=== PATIENT | female | born 1970 | race Caucasian/White ===

== ENCOUNTER 2018-09-05 01:03 | Emergency (ER) | payer OTHER ==
[2018-09-05 01:21] VITALS: BMI 26.4
[2018-09-05 01:25] VITALS: TEMP 98.2; O2SAT 98
[2018-09-05 02:02] LABS: BASO # 0.1 K/uL (0.0-0.2); BASO % 0.7 % (0.0-2.0); EOS # 0.4 K/uL (0.0-0.7); EOS % 5.3 % (0.0-4.0); HEMOGLOBIN 11.9 g/dL (12.0-16.0); LYMPH # 2.6 K/uL (1.0-4.3); LYMPH % 35.4 % (20.0-40.0); MEAN CELL VOLUME 91.1 fl (81.0-99.0); MEAN CORPUSCULAR HEMOGLOBIN 30.1 pg (27.0-31.0); MEAN CORPUSCULAR HGB CONC 33.1 g/dL (33.0-37.0); MONO # 0.6 K/uL (0.0-0.8); NEUT # 3.8 K/uL (1.8-7.0); NEUT % 50.6 % (50.0-75.0); RBC 3.94 Mil/uL (3.80-5.20); RED CELL DISTRIBUTION WIDTH 13.3 % (11.5-14.5); WHITE BLOOD COUNT 7.5 K/uL (4.8-10.8)
[2018-09-05 02:07] LABS: INR 0.9; PROTHROMBIN TIME 10.4 Seconds (9.8-13.1)
[2018-09-05 02:10] LABS: PARTIAL THROMBOPLASTIN TIME 25.4 Seconds (25.6-37.1)
--- NOTE | 2018-09-05 02:10 | ED PDOC ---
HPI: General Adult Time Seen by Provider: 09/05/18 01:20 Chief Complaint (Nursing): Weakness/Neurological Deficit Chief Complaint (Provider): left calf pain History Per: Patient History/Exam Limitations: no limitations Onset/Duration Of Symptoms: Days (x2 weeks) Current Symptoms Are (Timing): Still Present Additional Complaint(s): Wendy Felix is a 48 year old female, with a past medical history of HTN, who presents to the emergency department complaining of left calf pain ongoing for x2 weeks. Patient states pain is exacerbated with walking and flexing of the fo ot. 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 Patient reports while driving [employer], her left side of her face went numb, she looked in the mirror and saw no facial droop. She denies any vision loss, weakness in the arms or left leg. No further medical complaints. On arrival to ED, patient was found to have a high blood pressure. PMD: Dr. Beard NIHSS Stroke Scale - Date/Time Evaluation Performed Date Performed: 09/05/18 Time Performed: 01:22 - How Severe is the Stroke Level of Consciousness: 0=Alert LOC to Questions: 0=Both comments correct LOC to commands: 0=Obeys both correctly Best Gaze: 0=Normal Visual: 0=No visual loss Facial: 0=Normal Motor Arm - Left: 0=No drift Motor Arm - Right: 0=No drift Motor Leg - Left: 0=No drift Motor Leg - Right: 0=No drift Limb Ataxia: 0=Absent Sensory: 0=Normal Best Language: 0=No aphasia Dysarthia: 0=Normal articulation Extinction & Inattention (Neglect): 0=Normal, no object Score: 0 Past Medical History Reviewed: Historical Data, Nursing Documentation, Vital Signs Vital Signs: Last Vital Signs Temp 98.2 F 09/05/18 01:20 Pulse 93 H 09/05/18 01:20 Resp 18 09/05/18 01:20 BP 179/98 H 09/05/18 01:20 Pulse Ox 98 09/05/18 01:20 Primary Care Provider: Non [facility] Provider, - Medical History PMH: HTN - Surgical History Surgical History: No Surg Hx - Family History Family History: States: Unknown Family Hx - Social History Current smoker - smoking cessation education provided: No Alcohol: None Drugs: Denies - Allergies Allergies/Adverse Reactions: Allergies Allergy/AdvReac Type Severity Reaction Status Date / Time No Known Allergies Allergy Verified 09/05/18 01:20 Review of Systems ROS Statement: Except As Marked, All Systems Reviewed And Found Negative Eyes: Negative for: Vision Change Musculoskeletal: Positive for: Leg Pain (left calf pain) Neurological: Positive for: Numbness (left side of face). Negative for: Weakness (left arm or leg), Other (facial droop) Physical Exam - Reviewed Nursing Documentation Reviewed: Yes Vital Signs Reviewed: Yes - Physical Exam Appears: Positive for: No Acute Distress Head Exam: Positive for: ATRAUMATIC, NORMAL INSPECTION, NORMOCEPHALIC Skin: Positive for: Normal Color, Warm, Dry Eye Exam: Positive for: Normal appearance, EOMI, PERRL ENT: Positive for: Normal ENT Inspection Neck: Positive for: Normal, Painless ROM, Supple Cardiovascular/Chest: Positive for: Regular Rate, Rhythm. Negative for: Murmur Respiratory: Positive for: Normal Breath Sounds. Negative for: Respiratory Distress Gastrointestinal/Abdominal: Positive for: Normal Exam, Soft. Negative for: Tenderness, Guarding, Rebound Back: Positive for: Normal Inspection. Negative for: L CVA Tenderness, R CVA Tenderness, Vertebral Tenderness Extremity: Positive for: Normal ROM (upper and lower extremities), Calf Tenderness (mild pain on left with calf squeeze, no visible swelling or ecchymosis). Negative for: Tenderness, Deformity, Swelling Neurological/Psych: Positive for: Awake, Alert, Normal Tone, Symmetric/Intact Strength, Oriented (x3), Cerebellar Tests (normal), water plant operator II-XII (intact). Negative for: Lethargic, Motor/Sensory Deficits, Facial Droop - Laboratory Results Result Diagrams: 09/05/18 01:50 09/05/18 01:50 - ECG O2 Sat by Pulse Oximetry: 98 (RA) Pulse Ox Interpretation: Normal Medical Decision Making Medical Decision Making: Time: 01:20 Initial Impression: Work up for left sided clot. 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 Also discussed the possibility of a CT scan for left sided pain. Patient agrees to hold off as she has no objective findings, weakness or slurred speech. Will oberve patient's blood pressure, if it doesn't go down and reassess. Initial Plan: --VBG --BMP --CBC w/ differential --D Dimer --PTT --PT --Chest two views (PA/LAT) [RAD] --Reevaluation 02:57 Labs and D Dimer are within normal limits. CXR show no acute disease. Upon provider evaluation patient is medically stable, and requires no further treatment in the ED at this time. Patient will be discharged home. Patient will be referred to neurologist for left sided facial numbness. Patient advised to follow up with PMD for HTN work up. Scribe Attestation: Documented by Christopher Lang, acting as a scribe for Tonya Banda. Provider Scribe Attestation: All medical record entries made by the Scribe were at my direction and personally dictated by me. I have reviewed the chart and agree that the record accurately reflects my personal performance of the history, physical exam, medical decision making, and the department course for this patient. I have also personally directed, reviewed, and agree with the discharge instructions and disposition. Disposition - Clinical Impression Clinical Impression: Pain of left calf, Left facial numbness - Disposition Referrals: Rizwan Beard MD [Medical Doctor] - Disposition: Routine/Home Disposition Time: 02:57 Condition: STABLE Additional Instructions: Follow up with primary medical doctor to workup hypertension. Follow up with neurologist for facial numbness. Return to the emergency department department if symptoms worsen or if new symptoms develop. Forms: [employer] ([place])
[2018-09-05 02:11] LABS: BLOOD UREA NITROGEN 16 mg/dl (7-17); CALCIUM 8.8 mg/dL (8.4-10.2); GFR NON-AFRICAN AMERICAN > 60
[2018-09-05 02:15] LABS: D DIMER < 200 ng/mlDDU (0-230)
[2018-09-05 02:16] LABS: VENOUS BLOOD GAS BASE EXCESS 2.6 mmol/L (0.0-2.0); VENOUS BLOOD GAS PCO2 41 mmHg (40-60); VENOUS BLOOD GAS PO2 60 mm/Hg (30-55); VENOUS BLOOD PH 7.43 (7.32-7.43)
[2018-09-05 08:33] VITALS: BP 135/84; PULSE 77; RESP 20
--- NOTE | 2018-09-05 11:03 | RAD ---
Date of service: 09/05/2018 HISTORY: Cough. COMPARISON: No prior. TECHNIQUE: Chest PA and lateral views FINDINGS: LUNGS: No active pulmonary disease. PLEURA: No significant pleural effusion identified. No pneumothorax apparent. CARDIOVASCULAR: No aortic atherosclerotic calcification present. Normal cardiac size. No pulmonary vascular congestion. OSSEOUS STRUCTURES: No significant abnormalities. VISUALIZED UPPER ABDOMEN: Normal. OTHER FINDINGS: None. IMPRESSION: No active disease.
== END 2018-09-05 03:05 | disposition home or self-care (01) ==
LOC: H.ER 01:03
DX: R20.2 Paresthesia of skin (principal); M79.605 Pain in left leg; I10 Essential (primary) hypertension